=== PATIENT | male | born 1960 | race Caucasian/White ===

== ENCOUNTER 2017-12-23 18:48 | Emergency (ER) | payer BC, OTHER ==
[2017-12-23] MEDS ORDERED: Proparacaine 0.5% Opth 15 ML BOT ONE (18:59)
[2017-12-23] MEDS ORDERED: Fluorescein Opthalmic Strip ONE (18:59)
== END 2017-12-23 19:25 | disposition home or self-care (01) ==
LOC: SCSER 18:48
DX: S05.01XA Injury of conjunctiva and corneal abrasion without foreign body, right eye, initial encounter (principal); I10 Essential (primary) hypertension; F17.290 Nicotine dependence, other tobacco product, uncomplicated; X58.XXXA Exposure to other specified factors, initial encounter
CPT/HCPCS: 99283